=== PATIENT | female | born 1980 | race Caucasian/White ===

== ENCOUNTER 2017-08-24 19:36 | Inpatient (IN) | payer BC ==
[2017-08-24] MEDS ORDERED: fentaNYL* 50 MCG/ML 2 ML VIAL (100 MCG VIAL) ONE (20:01)
--- NOTE | 2017-08-24 20:54 | HP ---
General Information - General Information Maternal Age: 37 Grav: 2 Para: 0 SAB: 0 IEA: 1 Estimated Due Date: 08/21/17 Determined By: Early Ultrasound Gestational Age in Weeks and Days: 40 Weeks and 3 Days Maternal Blood Type and Rh: B Positive - Results this Serology/RPR Result: Non-Reactive Rubella Result: Non-Immune HBsAg Result: Negative HIV Result: Negative GBS Culture Result: Negative Past Medical History Delivery History: See Records Pertinent Past Medical History: Non-Contributory Pertinent Past Surgical History: None Pertinent Family History: See Records Family History Comment: CA, ovarian CA - Antepartal Records Antepartal Records: Reviewed, Uncomplicated Review of Systems Constitutional: Uncomfortable CV Complaint: No Respiratory: Shortness of Breath: No Gastrointestinal: No Nausea/Vomiting - Loose stools Genitourinary: No Dysuria, No Bleeding, No Leaking Fluid Musculoskeletal: Contractions Neurological: No Headache Movement: Normal Exam Allergies/Adverse Reactions: Allergies No Known Allergies Allergy (Verified 08/24/17 20:09) BP 129/78 T 36.8 HR 88 RR 20 - Measurements Height: 5 ft 4 in Weight: 190 lb Weight in lbs: 190 Body Mass Index (BMI): 32.5 - Exam Abdomen: No Upper Quadrant Pain Breast: Breast Exam Deferred CVA: No CVA Tenderness Extremities: No Edema Heart: Normal Rhythm/Heart Sounds HEENT: No Significant Findings Lungs: Clear Bilaterally Rectal: Rectal Exam Deferred Reflexes: DTR 2+ - No clonus Thyroid: No Thyromegaly - Cervical Exam 3-4cm/90%/0 station, vertex - Abdominal Exam Abdomen Exam: Non-Tender, Fundal Height Consistent with Dates Abdomen Exam Comment: EFW 7.5-8lb - Membranes Membrane Status: Intact - Ultrasound/Biophysical Profile Ultrasound Status: Not Done EFM Findings - External Monitor Findings External Monitor Findings: Accelerations Present, No Pattern of Variable or Late Decelerations, Variability Moderate Contractions: Irregular, Regular, Moderate, 45-90 Seconds Contraction Frequency: Q 3-5 min Assessment/Plan - Reason for Visit Reason for Visit: Term in labor - Obstetrical Risk Factors Obstetrical Risk Factors: Obesity - Plan Plan: Early Labor - Date/Time of Admission Date of Admission: 08/24/17 Time of Admission: 20:30
[2017-08-24 20:57] LABS: ABS Basophils 0 10^3/ul (0-0.2); ABS Eosinophils 0 10^3/ul (0-0.6); ABS Lymphocytes 1.4 10^3/ul (1.0-4.8); ABS Monocytes 0.4 10^3/ul (0-0.8); ABS Neutrophils 11.9 10^3/ul (1.5-7.7); ABS Nucleated RBC 0 10^3/ul; Eosinophil % 0 % (0-6); Hematocrit 33 % (35-47); Hemoglobin 11.3 g/dl (12.0-16.0); Lymphocyte % 10.4 % (25-47); Mean Corpuscular HGB Conc 34 g/dl (31-36); Mean Corpuscular Hemoglobin 29 pg (27-31); Mean Corpuscular Volume 87 fL (80-97); Mean Platelet Volume 9 um3 (7.4-10.4); Nucleated Red Blood Cells % 0.1; Platelet Count 275 10^3/ul (150-450); Red Blood Count 3.82 10^6/ul (4.0-5.4); Red Cell Distribution Width 14 % (10.5-15); White Blood Count 13.8 10^3/ul (3.5-10.8)
[2017-08-24] MEDS ORDERED: OBEPIDURAL* 250 ML EPIDURAL ONE (22:43)
[2017-08-24] MEDS ORDERED: EPHEDrine (Pressors)* 50 MG/ML VIAL IV PUSH PRN (23:05)
[2017-08-24] MEDS ORDERED: Sodium Citrate/Citric Acid* 15 ML UDC PO PRN (23:05)
[2017-08-24] MEDS ORDERED: Phenylephrine IV* 40 MCG/ML 10 ML SYRINGE IV PUSH PRN (23:05)
[2017-08-24] MEDS ORDERED: Famotidine TAB* 20 MG PO PRN (23:05)
[2017-08-24] MEDS ORDERED: OBEPIDURAL* 250 ML EPIDURAL SCH (23:45)
[2017-08-25] MEDS ORDERED: Oxytocin in LR* 20 UNITS/1,000 ML BAG IVPB ONE (03:27)
[2017-08-25] MEDS ORDERED: Oxytocin in LR* 20 UNITS/1,000 ML BAG IVPB SCH ×2 (03:30→09:20)
[2017-08-25] MEDS ORDERED: Misoprostol TAB* 200 MCG PR ONE (09:00)
[2017-08-25] MEDS ORDERED: Witch Hazel PAD* JAR TOPICAL PRN (09:17)
[2017-08-25] MEDS ORDERED: Measles, Mumps,Rubella VACC* 0.5 ML/VIAL SUBCUT ONE (09:17)
[2017-08-25] MEDS ORDERED: Dibucaine 1% 28.35 GM TUBE PR PRN (09:17)
[2017-08-25] MEDS ORDERED: Acetaminophen TAB* 325 MG PO PRN (09:17)
[2017-08-25] MEDS ORDERED: Glycerin ADULT SUPP PR PRN (09:17)
[2017-08-25] MEDS: Docusate CAP* 100 MG PO SCH ×2 (14:27→21:12)
[2017-08-25] MEDS: Ibuprofen TAB* 600 MG PO PRN (22:27)
[2017-08-26 07:14] LABS: Hematocrit 29 % (35-47); Mean Corpuscular HGB Conc 34 g/dl (31-36); Mean Corpuscular Hemoglobin 30 pg (27-31); Mean Corpuscular Volume 89 fL (80-97); Mean Platelet Volume 9 um3 (7.4-10.4); Platelet Count 231 10^3/ul (150-450); Red Blood Count 3.32 10^6/ul (4.0-5.4); Red Cell Distribution Width 14 % (10.5-15); White Blood Count 12.1 10^3/ul (3.5-10.8)
[2017-08-26] MEDS: Ibuprofen TAB* 600 MG PO PRN ×3 (08:41→21:57)
[2017-08-26] MEDS: Docusate CAP* 100 MG PO SCH ×3 (08:41→21:56)
[2017-08-26] MEDS: Ferrous Gluconate TAB* 324 MG TAB PO SCH ×2 (08:41→21:57)
--- NOTE | 2017-08-26 17:50 | PTEDU ---
Patient Name: SUSAN FRANCIS SUSAN FRANCIS selected video: Never Ever Shake a Baby to view on 08/26/2017 at 5:50:13 PM from [facility] [email or web address]
[2017-08-27] MEDS: Docusate CAP* 100 MG PO SCH (08:32)
[2017-08-27] MEDS: Ibuprofen TAB* 600 MG PO PRN (08:32)
[2017-08-27] MEDS: Ferrous Gluconate TAB* 324 MG TAB PO SCH (08:32)
[2017-08-27 09:21] VITALS: BP 126/60
== END 2017-08-27 13:44 | disposition home or self-care (01) | DRG 560 ==
LOC: MCHOBOUT 19:36 → MCHOB 20:30
PROVIDERS: ADMIT Midwife; ATTEND Midwife
PROC: 4A1HXCZ Monitoring of Products of Conception, Cardiac Rate, External Approach (ICD-10-PCS; principal; 2017-08-24)
PROC: 10E0XZZ Delivery of Products of Conception, External Approach (ICD-10-PCS; 2017-08-24)
PROC: 10907ZC Drainage of Amniotic Fluid, Therapeutic from Products of Conception, Via Natural or Artificial Opening (ICD-10-PCS; 2017-08-24)
PROC: 0UQGXZZ Repair Vagina, External Approach (ICD-10-PCS; 2017-08-24)
DX: O48.0 Post-term pregnancy (principal); E66.9 Obesity, unspecified; O69.2XX0 Labor and delivery complicated by other cord entanglement, with compression, not applicable or unspecified; O99.214 Obesity complicating childbirth; Z3A.40 40 weeks gestation of pregnancy; Z37.0 Single live birth; O77.0 Labor and delivery complicated by meconium in amniotic fluid; O71.89 Other specified obstetric trauma; O90.81 Anemia of the puerperium; O76 Abnormality in fetal heart rate and rhythm complicating labor and delivery; Z68.32 Body mass index [BMI] 32.0-32.9, adult
CPT/HCPCS: 36415; 85025; 85027; 86850; 86900; 86901; 90707; A9270-GY; J3010

== ENCOUNTER 2019-01-23 11:59 | Inpatient (IN) | payer OTHER ==
[2019-01-23] MEDS ORDERED: Nalbuphine* 10 MG/ML 1 ML VIAL IV ONE (13:09)
[2019-01-23] MEDS ORDERED: Promethazine INJ(RESTRICTED)* 25 MG/ML 1 ML VIAL IV ONE (13:09)
[2019-01-23] MEDS ORDERED: Buffered Lidocaine 1% SYRIN* 1 ML/SYRINGE INTRADERM ONE (13:09)
[2019-01-23] MEDS ORDERED: Lactated Ringers 1000 ML Bag* 1,000 ML IV ONE ×2 (13:09→21:22)
--- NOTE | 2019-01-23 13:21 | HP ---
General Information - Reason for Visit , IUP@40+6 here for an IOL - General Information Maternal Age: 38 Grav: 3 Para: 1 SAB: 0 IEA: 1 Estimated Due Date: 01/17/19 Determined By: Early Ultrasound Gestational Age in Weeks/Days: 40+6 Maternal Blood Type and Rh: B Positive - Results this Serology/RPR Result: Non-Reactive Rubella Result: Immune HBsAg Result: Negative HIV Result: Negative GBS Culture Result: Negative Past Medical History Delivery History: Hx Uncomplicated Vaginal Delivery Delivery History Comment: Pushed 1.5 hours, abrasions with 2 stitch repair Past Medical History Comment: Hx of depression/anxiety Family History Comment: Father: [place], anxiety PGF: [place] MGM: ovarian cancer MGF: decreased d/t cancer - Antepartal Records Antepartal Records: Reviewed, Complicated by: - AMA (38 at delivery); hx of transverse lie Review of Systems Constitutional: Comfortable CV Complaint: No Respiratory: Shortness of Breath: No Gastrointestinal: No Nausea/Vomiting Genitourinary: No Dysuria, No Bleeding, No Leaking Fluid Musculoskeletal: No Complaint, No Epigastric Pain Neurological: No Headache, No Visual Changes Movement: Normal Exam Allergies/Adverse Reactions: Allergies No Known Allergies Allergy (Verified 08/24/17 20:09) 98.3, BP 139/77, HR 74, O2 98%, RR 18 - Measurements Height: 5 ft 4 in Weight: 198 lb Weight in lbs: 198.926014 Body Mass Index (BMI): 34.0 Pre- Weight: 179 lb Weight Gained This : 19 lbs and 0 ozs - Exam Breast: Breast Exam Deferred CVA: No CVA Tenderness Extremities: No Edema Heart: Normal Rhythm/Heart Sounds HEENT: No Significant Findings Lungs: Clear Bilaterally Rectal: Rectal Exam Deferred Targeted Exam Findings Estimated Weight: 7lbs Cervical Exam: 3cm Effacement: 50% Station: -2 Presenting Part: Vertex Membrane Status: Intact Bleeding/Discharge: None EFM Findings - External Monitor Findings Baseline Heart Rate: 135 External Monitor Findings: Accelerations Present, No Pattern of Variable or Late Decelerations, Variability Moderate External Monitor Findings Comment: No evidence of acidemia Contractions: Irregular, Mild Assessment/Plan - Assessment , IUP@40+6 GBS negative, B+ Medical hx significant for anxiety/depression Hx of uncomplicated vaginal delivery course complicated by AMA, hx of transverse lie Baby vtx by bedside US and vaginal exam VE: /-2, soft, vtx No evidence of metabolic acidemia - Obstetrical Risk Factors Obstetrical Risk Factors: Obesity - Plan Plan: Induction, Admit - Anticipate Vaginal Delivery Plan Comment: Admit to L&D PARQ discussion about Pitocin for induction Planning epidural in active labor VE prn Anticipate progression to - Date/Time of Admission Date of Admission: 01/23/19 Time of Admission: 12:05
[2019-01-23] MEDS ORDERED: Oxytocin in LR* 20 UNITS/1,000 ML BAG IVPB SCH (14:00)
[2019-01-23] MEDS ORDERED: Lactated Ringers 1000 ML Bag* 1,000 ML IV SCH ×2 (14:00→22:00)
[2019-01-23 14:02] LABS: ABS Lymphocytes 1.8 10^3/ul (1.0-4.8); ABS Monocytes 0.4 10^3/ul (0-0.8); ABS Neutrophils 6.6 10^3/ul (1.5-7.7); Eosinophil % 0.5 %; Hematocrit 34 % (35-47); Hemoglobin 11.6 g/dL (12.0-16.0); Lymphocyte % 20.4 %; Mean Corpuscular HGB Conc 35 g/dL (31-36); Mean Corpuscular Hemoglobin 31 pg (27-31); Mean Corpuscular Volume 89 fL (80-97); Mean Platelet Volume 8.9 fL (7.4-10.4); Nucleated Red Blood Cells % 0.1; Platelet Count 240 10^3/uL (150-450); Red Blood Count 3.78 10^6 /uL (3.70-4.87); Red Cell Distribution Width 13 % (10-15); White Blood Count 8.9 10^3/uL (3.5-10.8)
[2019-01-23 14:38] LABS: Urine Benzodiazepine Screen None Detected (None Detect); Urine Opiates Screen None Detected (None Detect)
--- NOTE | 2019-01-23 15:50 | PN ---
Progress Note - Progress Note Date of Service: 01/23/19 Note: S: Pt doing well, feeling contractions every 2-4 minutes, mild O: BP 123/66, temp 98.6 FHR 130, moderate variability, +accels, occasional variable decel Contractions: q2-4 minutes, palpate mild, good resting tone Pitocin@8 mU A: VSS No evidence of metabolic acidemia Regular contractions P: Continue to increase Pitocin as tolerated Anticipate progression to active labor
--- NOTE | 2019-01-23 16:45 | PN ---
Progress Note - Progress Note Date of Service: 01/23/19 Note: Pt having variables and late decelerations with Pitocin at 10mU Good variability, no indication of metabolic acidemia Contractions q2 minutes, good resting tone 500 mL IV bolus given pt in left lateral Pitocin halved to 5mU VE: 3.5/50/-2, vtx
--- NOTE | 2019-01-23 19:16 | PN ---
Progress Note - Progress Note Date of Service: 01/23/19 Note: S: Pt doing well, feeling contractions every 2-4 minutes, moderate O: BP 131/68, temp 98.6 FHR 130, moderate variability, +accels, occasional variable decel Contractions: q2-4 minutes, palpate moderate, good resting tone Pitocin@6 mU VE: 4/60/-2, vtx, bulging bag A: VSS No evidence of metabolic acidemia Regular contractions P: Anticipate progression
--- NOTE | 2019-01-23 20:20 | PN ---
Progress Note - Progress Note Date of Service: 01/23/19 Note: Pt feeling more uncomfortable with contractions Requesting epidural Anesthesia notified
[2019-01-23] MEDS ORDERED: OBEPIDURAL* 250 ML EPIDURAL ONE (20:39)
[2019-01-23] MEDS ORDERED: Sodium Citrate/Citric Acid* 15 ML UDC PO PRN (21:22)
[2019-01-23] MEDS ORDERED: Phenylephrine 40 MCG/ML SYRINGE IV PUSH PRN ×2 (21:22)
[2019-01-23] MEDS ORDERED: OBEPIDURAL* 250 ML EPIDURAL SCH (22:00)
--- NOTE | 2019-01-23 22:31 | PN ---
Progress Note - Progress Note Date of Service: 01/23/19 Note: S: Pt doing well. Comfortable with CEI infusing. O: BP 131/70, temp 98.6 FHR 130, moderate variability, +accels, variable decels Contractions: q2 minutes, palpate moderate, good resting tone Pitocin@6 mU SROM 0945, clear fluid VE: 6/90/-2, vtx, +bloody show A: VSS No evidence of metabolic acidemia Regular contractions P: Anticipate progression
[2019-01-24] MEDS ORDERED: Witch Hazel PAD* JAR TOPICAL PRN (00:09)
[2019-01-24] MEDS ORDERED: Glycerin ADULT SUPP PR PRN (00:09)
[2019-01-24] MEDS ORDERED: Dibucaine 1% 28.35 GM TUBE PR PRN (00:09)
--- NOTE | 2019-01-24 00:13 | PROCNOTE ---
[facility] OB: Delivery Note - Delivery A Date of : 01/23/19 Time of : 23:37 Gregory Sex: Male Weight at : 7 lb 4 oz Score 1 Minute: 9 Score 5 Minutes: 9 Gestational Age in Weeks and Days at Delivery: 40 Weeks and 6 Days Delivery Method: Spontaneous Vaginal Labor: Induced Did Patient attempt ?: N/A, No Previous Amniotic Fluid: Clear Estimated Blood Loss: 300 Anesthesia/Analgesia: CEI for Labor Delivered By: Alexandra Inman Nursery Level of Nursery: Regular/Bedside - Perineum Perineal Injury: 1st Degree Perineal Injury Comment: repaired in the usual fashion under 1% lido with CEI infusing. Hemostatic. Perineal Repair: By Delivering Practioner - Events Delivery Events of Note: Pitocin During Labor - Additional Delivery Notes Additional Delivery Notes: 38 yo at 40+6 weeks admitted for an IOL. SROM at 2135, clear fluid. Progressed to complete with CEI infusing. Pt began pushing spontaneously at 2331. of liveborn male at 2337. OA to MONSE, shoulder followed easily. Infant to mother's chest, dried and stimulated with spontaneous cry. 's 9 and 9. Cord clamped and cut by delivering provider. Spontaneous luciano delivery of intact placenta at 2345. Active management of 3rd stage, Pitocin infusing, fundus firm. EBL 300 mL. After careful inspection a first degree perineal laceration was identified and repaired in the usual fashion. Normal anatomy restored, hemostasis achieved. breast feeding. Mother and in stable condition at time of note.
[2019-01-24] MEDS ORDERED: Oxytocin in LR* 20 UNITS/1,000 ML BAG IVPB SCH (01:00)
[2019-01-24] MEDS ORDERED: Lactated Ringers 1000 ML Bag* 1,000 ML IV SCH (01:00)
[2019-01-24] MEDS: Ibuprofen TAB* 600 MG PO PRN ×4 (02:21→21:43)
[2019-01-24] MEDS: Docusate CAP* 100 MG PO SCH ×3 (07:47→21:43)
[2019-01-24] MEDS ORDERED: Simethicone TAB* 80 MG TAB.CHEW PO SCH (08:30)
[2019-01-24 10:10] LABS: ABS Eosinophils 0.1 10^3/ul (0-0.6); ABS Lymphocytes 1.9 10^3/ul (1.0-4.8); ABS Monocytes 0.5 10^3/ul (0-0.8); Eosinophil % 0.5 %; Hematocrit 30 % (35-47); Hemoglobin 10.2 g/dL (12.0-16.0); Lymphocyte % 16.8 %; Mean Corpuscular HGB Conc 34 g/dL (31-36); Mean Corpuscular Hemoglobin 30 pg (27-31); Mean Corpuscular Volume 89 fL (80-97); Mean Platelet Volume 8.5 fL (7.4-10.4); Platelet Count 210 10^3/uL (150-450); Red Cell Distribution Width 13 % (10-15); White Blood Count 11.5 10^3/uL (3.5-10.8)
[2019-01-24] MEDS: Acetaminophen TAB* 325 MG PO PRN ×2 (14:51→20:13)
[2019-01-25] MEDS: Acetaminophen TAB* 325 MG PO PRN ×2 (00:14→04:12)
[2019-01-25] MEDS: Ibuprofen TAB* 600 MG PO PRN ×2 (04:13→11:45)
[2019-01-25 08:17] VITALS: BP 129/78
[2019-01-25] MEDS ORDERED: Ferrous Gluconate TAB* 324 MG TAB PO SCH (09:00)
[2019-01-25] MEDS: Docusate CAP* 100 MG PO SCH (13:36)
== END 2019-01-25 12:28 | disposition home or self-care (01) | DRG 560 ==
LOC: MCHOBOUT 11:59 → MCHOB 13:02
PROVIDERS: ADMIT Advanced Practice Midwife; ATTEND Advanced Practice Midwife
PROC: 10E0XZZ Delivery of Products of Conception, External Approach (ICD-10-PCS; principal; 2019-01-23)
PROC: 3E033VJ Introduction of Other Hormone into Peripheral Vein, Percutaneous Approach (ICD-10-PCS; 2019-01-23)
PROC: 0HQ9XZZ Repair Perineum Skin, External Approach (ICD-10-PCS; 2019-01-23)
DX: O48.0 Post-term pregnancy (principal); Z37.0 Single live birth; Z3A.40 40 weeks gestation of pregnancy; O70.0 First degree perineal laceration during delivery; O99.214 Obesity complicating childbirth
CPT/HCPCS: 36415; 80307; 85025; 86850; 86900; 86901; A9270-GY